=== PATIENT | male | born 2000 | race Caucasian/White ===

== ENCOUNTER 2022-11-23 20:34 | Emergency (ER) | payer SELFPAY ==
[~2022-11-23] VITALS: Ht 167.6 cm; Wt 63.0 kg
[2022-11-23 22:05] VITALS: BP 137/85; PULSE 87; RESP 18; TEMP 98.6; O2SAT 98
[2022-11-23] MEDS ORDERED: ACETAMINOPHEN 325MG TABLET PO ONE (23:00)
[2022-11-23] MEDS ORDERED: LIDOCAINE HCL/PF 1% 10 MG/ML 5ML VIAL INFIL ONE (23:00)
[2022-11-24] MEDS ORDERED: AMOX1TAB16 MT (01:06)
[2022-11-24] MEDS ORDERED: BACITRACIN ZINC OINT UDPKT TOP ONE (01:30)
== END 2022-11-24 01:37 | disposition home or self-care (01) ==
LOC: ER 20:34
DX: S51.811A Laceration without foreign body of right forearm, initial encounter (principal); W54.0XXA Bitten by dog, initial encounter; Y93.89 Activity, other specified; Y92.89 Other specified places as the place of occurrence of the external cause; Y99.8 Other external cause status
CPT/HCPCS: 99284; 73090; 73130; 12005; J3490

== ENCOUNTER 2022-11-25 16:19 | Emergency (ER) | payer SELFPAY ==
[~2022-11-25] VITALS: Ht 172.7 cm; Wt 65.0 kg
[~2022-11-25 16:19] MED LIST: AMOX1TAB16 MT
[2022-11-25 16:24] VITALS: O2SAT 100
[2022-11-25 17:01] VITALS: BP 111/74; PULSE 63; RESP 20; TEMP 98
== END 2022-11-25 17:01 | disposition home or self-care (01) ==
LOC: ER 16:19
DX: S51.819D Laceration without foreign body of unspecified forearm, subsequent encounter (principal); X58.XXXD Exposure to other specified factors, subsequent encounter
CPT/HCPCS: 99281